=== PATIENT | male | born 1995 | race Caucasian/White ===

== ENCOUNTER 2019-12-07 12:50 | Emergency (ER) | payer SELFPAY ==
[2019-12-07 13:00] VITALS: BP 149/90; PULSE 99; RESP 18; TEMP 37.3; O2SAT 93; BMI 32.3
--- NOTE | 2019-12-07 13:07 | ED_ITS ---
Documented by User: CHASTITY Murray 12/07/19 16:46 HPI - Fever General: Chief Complaint: Fever Stated Complaint: fever Time Seen by Provider: 12/07/19 13:05 History of Present Illness: HPI Narrative: Patient is a 24-year-old male who comes into the ED with nausea, vomiting, fever, diarrhea. Patient does have a past medical history of a stress-induced IL and type II diabetes. Symptoms started 2 days ago. He states he has had 3 episodes of emesis since the symptoms started. Denies any blood in the vomit. He has had multiple episodes of diarrhea Daily over the past 2 days.Diarrhea does not have any blood in it and its described as brown liquid. He endorses fever and chills. Patient is also complaining of a new onset of left shoulder and upper arm pain and numbness that started this morning when he woke up. He denies any current chest pain. He does also have a chronic smoker's cough but admits that his cough has gone worse over the past couple days. He says these did not eat or drink much in the past 2 days and lasting and he was a little chicken soup yesterday. Cough symptoms started over 2 days ago.Patient states that he's supposed to have an albuterol inhaler but refuses to get one. Associated symptoms: Reports chills, diarrhea, extremity pain (left upper arm), nausea and vomiting; Deny abdominal pain, back/flank pain, chest pain, dysuria, headache(s) or nasal congestion Review of Systems Const: Reports: fever and chills; Denies: fatigue Eyes: Denies: change in vision or eye discomfort ENMT: Denies: throat pain, painful swallowing, nasal discharge or nasal congestion Card: Denies: chest pain, palpitations, edema, swelling of feet/ankles, shortness of breath on exertion or shortness of breath when lying down Resp: Reports: non-productive cough; Denies: shortness of breath or productive cough GI: Reports: nausea, vomiting and diarrhea; Denies: abdominal pain, constipation or blood in stool : Denies: flank pain, difficulty urinating, painful urination or blood in urine Musc: Reports: extremity pain (left upper arm); Denies: neck pain, back pain or extremity swelling Skin/Breast: Denies: rash or new lesion Neuro: Reports: numbness in extremities (left upper arm); Denies: headache or weakness in extremities PFS ED PFSH: Social History Smoking and tobacco status: current every day smoker Physical Exam Const: COMMON NORMALS: oriented x3 HENMT: COMMON NORMALS: normocephalic and external nose normal HEAD & SCALP: normocephalic NOSE: external nose normal MOUTH: moist mucous membranes abnormal (dry-mild) THROAT: posterior oropharynx normal and uvula midline Neck/C-Spine: COMMON NORMALS: supple GENERAL: Yes normal visual inspection Resp: COMMON NORMALS: normal respiratory effort, no retractions, no use of accessory muscles and clear to auscultation bilaterally AUSCULTATION: clear to auscultation bilaterally Cardio: COMMON NORMALS: regular rate, regular rhythm, S1 normal heart sound, S2 normal heart sound, no gallops, no clicks, no murmurs and peripheral pulses 2+ throughout RATE: regular rate RHYTHM: regular rhythm HEART SOUNDS: S1 normal and S2 normal PERIPHERAL PULSES: pulses 2+ throughout GI: COMMON NORMALS: normal to inspection, nondistended, normoactive bowel sounds, soft to palpation, non-tender and no masses PALPATION: Yes soft : COMMON NORMALS: Yes no CVA tenderness BLADDER/KIDNEY EXAM: Yes no CVA tenderness Back/Pelvis: COMMON NORMALS: no CVA tenderness Extremity: COMMON NORMALS: normal to inspection LEFT UPPER EXTREMITY: Yes upper arm (normal inspection. non tender.) Neuro: COMMON NORMALS: oriented x3 and moves all extremities Skin: COMMON NORMALS: no rashes or lesions noted GENERAL SKIN EXAM: no rashes or lesions noted and dry skin Course ED course: Patient's wheezing did improve after DuoNeb treatment in the emergency department. EKG was performed along with troponins to rule out any cardiac cause of left arm pain. Troponins were negative. Patient's labs work was remarkable for influenza B and sodium 129.. After IV fluids patient Wallace better and some symptoms improved. Since his upper respiratory symptoms started over 48 hours ago did not start patient on Tamiflu. I did provide him with a prescription for azithromycin and albuterol inhaler due to his wheezing. Patient agreed with understood plan. I discussed with him the importance of getting the inhaler to help with his wheezing. Vital Signs: Vital signs: Vital Signs Temperature 98.4 F 02/16/20 16:08 Pulse Rate 95 12/07/19 16:08 Respiratory Rate 20 H 12/07/19 16:08 Blood Pressure 114/68 12/07/19 16:08 Pulse Oximetry 94 12/07/19 16:08 MDM - Fever Lab Data: Attestation: I reviewed the patient's lab results. Labs: Lab Results 12/07/19 12/07/19 12/07/19 Range/Units 13:10 13:10 13:10 WBC 5.0 (4.0-10.0) 10^3/ uL RBC 5.84 H (4.1-5.3) 10^6/u L Hgb 15.9 (11.7-16.6) g/dL Hct 46.7 (42.0-52.0) % MCV 80.0 (80-94) fL MCH 27.2 L (28.0-34.0) pg MCHC 34.0 (30.0-36.0) g/dL RDW 11.9 L (12.1-15.1) % Plt Count 142 (130-400) 10^3/c mm MPV 9.9 (7.4-10.4) fL Neut % (Auto) 59.8 % Lymph % (Auto) 22.6 % [place] % (Auto) 16.8 % Eos % (Auto) 0.0 % Baso % (Auto) 0.4 % Neut # (Auto) 3.0 (1.8-7.7) 10^3/u L Lymph # (Auto) 1.1 (0.8-4.8) 10^3/u L [place] # (Auto) 0.8 (0.2-0.9) 10^3/u L Eos # (Auto) 0.0 (0.0-0.8) 10^3/u L Baso # (Auto) 0.0 (0.0-0.1) 10^3/u L Nucleated RBC % (a uto) 0 % Nucleated RBCs # 0.0 /100WBC Sodium 129 L (136-145) mmol/L Potassium 3.6 (3.5-5.1) mmol/L Chloride 91 L (98-107) mmol/L Carbon Dioxide 24 (22-29) mmol/L Anion Gap 17.6 (5-19) BUN 9 (6-20) mg/dL Creatinine 0.9 (0.7-1.2) mg/dL GFR Calculation 105.5 (90-130) mL/min Glucose 397 H (65-115) mg/dL POC Glucose (70-110) mg/dL Calcium 9.5 (8.5-10.5) mg/dL Total Bilirubin 0.3 (0.15-1.2) mg/dL AST 28 (0-40) U/L ALT 27 (0-41) U/L Alkaline Phosphata se 92 (40-130) IU/L Troponin T Baselin e 9 (0-15) ng/mL Troponin T 120 Min [place] (0-15) ng/mL Delta Troponin T (0-10) ABS# Total Protein 7.7 (6.6-8.7) g/dL Albumin 4.2 (3.5-5.2) g/dL Globulin 3.5 (1.3-4.6) g/dL Urine Color (Yellow) Urine Appearance (CLEAR) Urine pH (5-7) Ur Specific Gravit y (1.005-1.030) Urine Protein (Negative) Urine Glucose (UA) (Normal) Urine Ketones (Negative) Urine Occult Blood (Negative) Urine Nitrate (Negative) Urine Bilirubin (NEGATIVE) Urine Urobilinogen (Negative) mg/dL Ur Leukocyte Reba ase (Negative) Urine RBC (0-2) /hpf Urine WBC (0-5) /hpf Ur Squamous Epith Cells (0-5) Urine Bacteria (NONE) Influenza Type A A g (Negative) POC Influenza B Ag (Negative) 12/07/19 12/07/19 12/07/19 Range/Units 13:24 13:35 13:40 WBC (4.0-10.0) 10^3/ uL RBC (4.1-5.3) 10^6/u L Hgb (11.7-16.6) g/dL Hct (42.0-52.0) % MCV (80-94) fL MCH (28.0-34.0) pg MCHC (30.0-36.0) g/dL RDW (12.1-15.1) % Plt Count (130-400) 10^3/c mm MPV (7.4-10.4) fL Neut % (Auto) % Lymph % (Auto) % [place] % (Auto) % Eos % (Auto) % Baso % (Auto) % Neut # (Auto) (1.8-7.7) 10^3/u L Lymph # (Auto) (0.8-4.8) 10^3/u L [place] # (Auto) (0.2-0.9) 10^3/u L Eos # (Auto) (0.0-0.8) 10^3/u L Baso # (Auto) (0.0-0.1) 10^3/u L Nucleated RBC % (a uto) % Nucleated RBCs # /100WBC Sodium (136-145) mmol/L Potassium (3.5-5.1) mmol/L Chloride (98-107) mmol/L Carbon Dioxide (22-29) mmol/L Anion Gap (5-19) BUN (6-20) mg/dL Creatinine (0.7-1.2) mg/dL GFR Calculation (90-130) mL/min Glucose (65-115) mg/dL POC Glucose 100 (70-110) mg/dL Calcium (8.5-10.5) mg/dL Total Bilirubin (0.15-1.2) mg/dL AST (0-40) U/L ALT (0-41) U/L Alkaline Phosphata se (40-130) IU/L Troponin T Baselin e (0-15) ng/mL Troponin T 120 Min [place] (0-15) ng/mL Delta Troponin T (0-10) ABS# Total Protein (6.6-8.7) g/dL Albumin (3.5-5.2) g/dL Globulin (1.3-4.6) g/dL Urine Color Yellow (Yellow) Urine Appearance Clear (CLEAR) Urine pH 5 (5-7) Ur Specific Gravit y 1.020 (1.005-1.030) Urine Protein 1+ H (Negative) Urine Glucose (UA) 4+ H (Normal) Urine Ketones Negative (Negative) Urine Occult Blood Neg (Negative) Urine Nitrate Negative (Negative) Urine Bilirubin Neg (NEGATIVE) Urine Urobilinogen Norm (Negative) mg/dL Ur Leukocyte Reba ase Negative (Negative) Urine RBC None (0-2) /hpf Urine WBC None (0-5) /hpf Ur Squamous Epith Cells None (0-5) Urine Bacteria None (NONE) Influenza Type A A g Negative (Negative) POC Influenza B Ag Positive H (Negative) 12/07/19 Range/Units 15:03 WBC (4.0-10.0) 10^3/ uL RBC (4.1-5.3) 10^6/u L Hgb (11.7-16.6) g/dL Hct (42.0-52.0) % MCV (80-94) fL MCH (28.0-34.0) pg MCHC (30.0-36.0) g/dL RDW (12.1-15.1) % Plt Count (130-400) 10^3/c mm MPV (7.4-10.4) fL Neut % (Auto) % Lymph % (Auto) % [place] % (Auto) % Eos % (Auto) % Baso % (Auto) % Neut # (Auto) (1.8-7.7) 10^3/u L Lymph # (Auto) (0.8-4.8) 10^3/u L [place] # (Auto) (0.2-0.9) 10^3/u L Eos # (Auto) (0.0-0.8) 10^3/u L Baso # (Auto) (0.0-0.1) 10^3/u L Nucleated RBC % (a uto) % Nucleated RBCs # /100WBC Sodium (136-145) mmol/L Potassium (3.5-5.1) mmol/L Chloride (98-107) mmol/L Carbon Dioxide (22-29) mmol/L Anion Gap (5-19) BUN (6-20) mg/dL Creatinine (0.7-1.2) mg/dL GFR Calculation (90-130) mL/min Glucose (65-115) mg/dL POC Glucose (70-110) mg/dL Calcium (8.5-10.5) mg/dL Total Bilirubin (0.15-1.2) mg/dL AST (0-40) U/L ALT (0-41) U/L Alkaline Phosphata se (40-130) IU/L Troponin T Baselin e (0-15) ng/mL Troponin T 120 Min [place] 8.40 (0-15) ng/mL Delta Troponin T -0.60 L (0-10) ABS# Total Protein (6.6-8.7) g/dL Albumin (3.5-5.2) g/dL Globulin (1.3-4.6) g/dL Urine Color (Yellow) Urine Appearance (CLEAR) Urine pH (5-7) Ur Specific Gravit y (1.005-1.030) Urine Protein (Negative) Urine Glucose (UA) (Normal) Urine Ketones (Negative) Urine Occult Blood (Negative) Urine Nitrate (Negative) Urine Bilirubin (NEGATIVE) Urine Urobilinogen (Negative) mg/dL Ur Leukocyte Reba ase (Negative) Urine RBC (0-2) /hpf Urine WBC (0-5) /hpf Ur Squamous Epith Cells (0-5) Urine Bacteria (NONE) Influenza Type A A g (Negative) POC Influenza B Ag (Negative) Imaging Data^: CXR: Attestation: I personally reviewed and interpreted this imaging study as follows: Radiologist's impression: [address] [address] XRay Report Signed Patient: Emiliano Jordan Unit #: [id number] : 1995 Age/Sex: 24 / M ADM Date: 12/07/19 Loc: ER Room/Bed: Attending Dr: Ordering Provider/Ordering MD: Darnell Patel Date of Service: 12/07/19 Procedure(s): XR chest 1V portable [id number] Accession Number(s): [id number] Report Number: [id number] WS: [id number] XR chest 1V portable [id number] REASON FOR EXAM: cough and wheezing FINDINGS: The heart is normal in size. The lung fry are well aerated. The chest is similar to July 19, 2018. No pneumonia, pleural effusion, pulmonary edema, or mass effect. There is no evidence of abnormalities the hilum and apices. No osseous abnormalities. XR/XR chest 1V portable [id number] IMPRESSION: No active cardiopulmonary changes. Dictated By: Adan Judd DO Signed By: Adan Judd DO Signed Date/Time: 12/07/19 1356 DD/ 1355 EKG Data^: EKG 1: Attestation: I personally reviewed and interpreted this EKG as follows: EKG interpretation date: 12/07/19 Interpretation: Normal sinus rhythm, 96 bpm, no ST depression seen, Possible ST elevation in lead 2 no flipped T waves. P waves present. Computer generated interpretation: Sinus rhythm, 96 bpm, ST elevation probably early repolarization (ST elevation with normally infected T-wave) Borderline right axis deviation. Discharge Plan Discharge Patient Disposition: Home, Self-Care Clinical Impression: Influenza B, Wheezing-associated respiratory infection Condition: Stable Prescriptions: New albuterol sulfate 90 mcg/actuation aerosol powdr breath activated 2 inh INHALATION Q6H PRN (Reason: shortness of breath or wheezing) Qty: 1 RF: 0 azithromycin 250 mg tablet See Rx Instructions .ROUTE .COMPLEX Qty: 6 RF: 0 No Action Tylenol Extra Strength 500 mg Tablet 500 mg PO Q4H PRN (Reason: Pain) RF: 0 ibuprofen 200 mg Tablet 400 mg PO Q4H PRN (Reason: Pain) RF: 0 Discharge Orders: Discharge Order (Routine); Ordered 12/07/19 Ordered By: Darnell Patel Referrals: Magdalena Sierra NP [Primary Care Provider] - Discharge Diet: Regular Discharge Activity: Increase activity as tolerated Patient Instructions: Influenza (ED), Reactive Airways Disease (ED) Activity Restrictions/Additional Instructions: Follow-up care PCP in 5-7 days for reevaluation. Use albuterol inhaler as needed for wheezing. Take full course of antibiotic as prescribed. Take ibuprofen or Tylenol as needed for fevers. Return to the ED if you have any shortness of breath or symptoms worsen. Discharge Date/Time: 12/07/19 15:59 Coding Level of Care Code ED Pension Administrator for Chg Fwd Exam Detailed Documented by User: Tiffanie Echevarria MD, [facility] [place] 12/16/19 23:38 HPI - Fever General: Chief Complaint: Fever Stated Complaint: fever Time Seen by Provider: 12/07/19 13:05 REPLACED BY [facility] ED PFSH: Social History Smoking and tobacco status: current every day smoker Course Vital Signs: Vital signs: Vital Signs Temperature 98.4 F 12/07/19 16:08 Pulse Rate 95 12/07/19 16:08 Respiratory Rate 20 H 12/07/19 16:08 Blood Pressure 114/68 12/07/19 16:08 Pulse Oximetry 94 12/07/19 16:08 MDM - Fever Lab Data: Labs: Lab Results 12/07/19 12/07/19 12/07/19 Range/Units 13:10 13:10 13:10 WBC 5.0 (4.0-10.0) 10^3/ uL RBC 5.84 H (4.1-5.3) 10^6/u L Hgb 15.9 (11.7-16.6) g/dL Hct 46.7 (42.0-52.0) % MCV 80.0 (80-94) fL MCH 27.2 L (28.0-34.0) pg MCHC 34.0 (30.0-36.0) g/dL RDW 11.9 L (12.1-15.1) % Plt Count 142 (130-400) 10^3/c mm MPV 9.9 (7.4-10.4) fL Neut % (Auto) 59.8 % Lymph % (Auto) 22.6 % [place] % (Auto) 16.8 % Eos % (Auto) 0.0 % Baso % (Auto) 0.4 % Neut # (Auto) 3.0 (1.8-7.7) 10^3/u L Lymph # (Auto) 1.1 (0.8-4.8) 10^3/u L [place] # (Auto) 0.8 (0.2-0.9) 10^3/u L Eos # (Auto) 0.0 (0.0-0.8) 10^3/u L Baso # (Auto) 0.0 (0.0-0.1) 10^3/u L Nucleated RBC % (a uto) 0 % Nucleated RBCs # 0.0 /100WBC Sodium 129 L (136-145) mmol/L Potassium 3.6 (3.5-5.1) mmol/L Chloride 91 L (98-107) mmol/L Carbon Dioxide 24 (22-29) mmol/L Anion Gap 17.6 (5-19) BUN 9 (6-20) mg/dL Creatinine 0.9 (0.7-1.2) mg/dL GFR Calculation 105.5 (90-130) mL/min Glucose 397 H (65-115) mg/dL POC Glucose (70-110) mg/dL Calcium 9.5 (8.5-10.5) mg/dL Total Bilirubin 0.3 (0.15-1.2) mg/dL AST 28 (0-40) U/L ALT 27 (0-41) U/L Alkaline Phosphata se 92 (40-130) IU/L Troponin T Baselin e 9 (0-15) ng/mL Troponin T 120 Min [place] (0-15) ng/mL Delta Troponin T (0-10) ABS# Total Protein 7.7 (6.6-8.7) g/dL Albumin 4.2 (3.5-5.2) g/dL Globulin 3.5 (1.3-4.6) g/dL Urine Color (Yellow) Urine Appearance (CLEAR) Urine pH (5-7) Ur Specific Gravit y (1.005-1.030) Urine Protein (Negative) Urine Glucose (UA) (Normal) Urine Ketones (Negative) Urine Occult Blood (Negative) Urine Nitrate (Negative) Urine Bilirubin (NEGATIVE) Urine Urobilinogen (Negative) mg/dL Ur Leukocyte Reba ase (Negative) Urine RBC (0-2) /hpf Urine WBC (0-5) /hpf Ur Squamous Epith Cells (0-5) Urine Bacteria (NONE) Influenza Type A A g (Negative) POC Influenza B Ag (Negative) 12/07/19 12/07/19 12/07/19 Range/Units 13:24 13:35 13:40 WBC (4.0-10.0) 10^3/ uL RBC (4.1-5.3) 10^6/u L Hgb (11.7-16.6) g/dL Hct (42.0-52.0) % MCV (80-94) fL MCH (28.0-34.0) pg MCHC (30.0-36.0) g/dL RDW (12.1-15.1) % Plt Count (130-400) 10^3/c mm MPV (7.4-10.4) fL Neut % (Auto) % Lymph % (Auto) % [place] % (Auto) % Eos % (Auto) % Baso % (Auto) % Neut # (Auto) (1.8-7.7) 10^3/u L Lymph # (Auto) (0.8-4.8) 10^3/u L [place] # (Auto) (0.2-0.9) 10^3/u L Eos # (Auto) (0.0-0.8) 10^3/u L Baso # (Auto) (0.0-0.1) 10^3/u L Nucleated RBC % (a uto) % Nucleated RBCs # /100WBC Sodium (136-145) mmol/L Potassium (3.5-5.1) mmol/L Chloride (98-107) mmol/L Carbon Dioxide (22-29) mmol/L Anion Gap (5-19) BUN (6-20) mg/dL Creatinine (0.7-1.2) mg/dL GFR Calculation (90-130) mL/min Glucose (65-115) mg/dL POC Glucose 100 (70-110) mg/dL Calcium (8.5-10.5) mg/dL Total Bilirubin (0.15-1.2) mg/dL AST (0-40) U/L ALT (0-41) U/L Alkaline Phosphata se (40-130) IU/L Troponin T Baselin e (0-15) ng/mL Troponin T 120 Min [place] (0-15) ng/mL Delta Troponin T (0-10) ABS# Total Protein (6.6-8.7) g/dL Albumin (3.5-5.2) g/dL Globulin (1.3-4.6) g/dL Urine Color Yellow (Yellow) Urine Appearance Clear (CLEAR) Urine pH 5 (5-7) Ur Specific Gravit y 1.020 (1.005-1.030) Urine Protein 1+ H (Negative) Urine Glucose (UA) 4+ H (Normal) Urine Ketones Negative (Negative) Urine Occult Blood Neg (Negative) Urine Nitrate Negative (Negative) Urine Bilirubin Neg (NEGATIVE) Urine Urobilinogen Norm (Negative) mg/dL Ur Leukocyte Reba ase Negative (Negative) Urine RBC None (0-2) /hpf Urine WBC None (0-5) /hpf Ur Squamous Epith Cells None (0-5) Urine Bacteria None (NONE) Influenza Type A A g Negative (Negative) POC Influenza B Ag Positive H (Negative) 12/07/19 Range/Units 15:03 WBC (4.0-10.0) 10^3/ uL RBC (4.1-5.3) 10^6/u L Hgb (11.7-16.6) g/dL Hct (42.0-52.0) % MCV (80-94) fL MCH (28.0-34.0) pg MCHC (30.0-36.0) g/dL RDW (12.1-15.1) % Plt Count (130-400) 10^3/c mm MPV (7.4-10.4) fL Neut % (Auto) % Lymph % (Auto) % [place] % (Auto) % Eos % (Auto) % Baso % (Auto) % Neut # (Auto) (1.8-7.7) 10^3/u L Lymph # (Auto) (0.8-4.8) 10^3/u L [place] # (Auto) (0.2-0.9) 10^3/u L Eos # (Auto) (0.0-0.8) 10^3/u L Baso # (Auto) (0.0-0.1) 10^3/u L Nucleated RBC % (a uto) % Nucleated RBCs # /100WBC Sodium (136-145) mmol/L Potassium (3.5-5.1) mmol/L Chloride (98-107) mmol/L Carbon Dioxide (22-29) mmol/L Anion Gap (5-19) BUN (6-20) mg/dL Creatinine (0.7-1.2) mg/dL GFR Calculation (90-130) mL/min Glucose (65-115) mg/dL POC Glucose (70-110) mg/dL Calcium (8.5-10.5) mg/dL Total Bilirubin (0.15-1.2) mg/dL AST (0-40) U/L ALT (0-41) U/L Alkaline Phosphata se (40-130) IU/L Troponin T Baselin e (0-15) ng/mL Troponin T 120 Min [place] 8.40 (0-15) ng/mL Delta Troponin T -0.60 L (0-10) ABS# Total Protein (6.6-8.7) g/dL Albumin (3.5-5.2) g/dL Globulin (1.3-4.6) g/dL Urine Color (Yellow) Urine Appearance (CLEAR) Urine pH (5-7) Ur Specific Gravit y (1.005-1.030) Urine Protein (Negative) Urine Glucose (UA) (Normal) Urine Ketones (Negative) Urine Occult Blood (Negative) Urine Nitrate (Negative) Urine Bilirubin (NEGATIVE) Urine Urobilinogen (Negative) mg/dL Ur Leukocyte Reba ase (Negative) Urine RBC (0-2) /hpf Urine WBC (0-5) /hpf Ur Squamous Epith Cells (0-5) Urine Bacteria (NONE) Influenza Type A A g (Negative) POC Influenza B Ag (Negative) Discharge Plan Discharge Patient Disposition: Home, Self-Care Clinical Impression: Influenza B, Wheezing-associated respiratory infection Condition: Stable Prescriptions: New albuterol sulfate 90 mcg/actuation aerosol powdr breath activated 2 inh INHALATION Q6H PRN (Reason: shortness of breath or wheezing) Qty: 1 RF: 0 azithromycin 250 mg tablet See Rx Instructions .ROUTE .COMPLEX Qty: 6 RF: 0 No Action Tylenol Extra Strength 500 mg Tablet 500 mg PO Q4H PRN (Reason: Pain) RF: 0 ibuprofen 200 mg Tablet 400 mg PO Q4H PRN (Reason: Pain) RF: 0 Discharge Orders: Discharge Order (Routine); Ordered 12/07/19 Ordered By: Darnell Patel Referrals: Magdalena Sierra NP [Primary Care Provider] - Discharge Diet: Regular Discharge Activity: Increase activity as tolerated Patient Instructions: Influenza (ED), Reactive Airways Disease (ED) Activity Restrictions/Additional Instructions: Follow-up care PCP in 5-7 days for reevaluation. Use albuterol inhaler as needed for wheezing. Take full course of antibiotic as prescribed. Take ibuprofen or Tylenol as needed for fevers. Return to the ED if you have any shortness of breath or symptoms worsen. Discharge Date/Time: 12/07/19 15:59 Coding Level of Care Code ED Pension Administrator for Chg Fwd Exam Detailed
[2019-12-07 13:18] LABS: Basophils % 0.4 %; Hematocrit 46.7 % (42.0-52.0); Hemoglobin 15.9 g/dL (11.7-16.6); Lymphocytes # 1.1 10^3/uL (0.8-4.8); Lymphocytes % 22.6 %; Mean Corpuscular Hemoglobin 27.2 pg (28.0-34.0); Mean Platelet Volume 9.9 fL (7.4-10.4); Monocytes # 0.8 10^3/uL (0.2-0.9); Monocytes % 16.8 %; Neutrophils % 59.8 %; Nucleated Red Blood Cells % 0 %; Platelet Count 142 10^3/cmm (130-400); Red Blood Count 5.84 10^6/uL (4.1-5.3); Red Cell Distribution Width 11.9 % (12.1-15.1)
[2019-12-07] MEDS: sodium chloride 0.9% 1,000 ML 999 ML IV (13:30)
--- NOTE | 2019-12-07 13:31 | ECG_ITS ---
Measurements Intervals [place] Rate: 96 P: 69 PA: 165 QRS: 96 QRSD: 100 T: 42 QT: 322 QTc: 407 SINUS RHYTHM BORDERLINE RIGHT AXIS DEVIATION [QRS AXIS > 90] ST ELEVATION, PROBABLY EARLY REPOLARIZATION [ST ELEVATION WITH NORMALLY IN INFLECTED T WAVE] Compared to ECG 09/02/2017 00:20:12 ST (T wave) deviation now present Early repolarization now present Sinus tachycardia no longer present T-wave abnormality no longer present Electronically Signed On 12-08-2019 11:15:35 DEMAND PLANNING ANALYST by Tank Lee M.D. [email or web address]
--- NOTE | 2019-12-07 13:31 | XR_ITS ---
WS: [id number] XR chest 1V portable [id number] REASON FOR EXAM: cough and wheezing FINDINGS: The heart is normal in size. The lung fry are well aerated. The chest is similar to July 19, 2018. No pneumonia, pleural effusion, pulmonary edema, or mass effect. There is no evidence of abnormalities the hilum and apices. No osseous abnormalities. XR/XR chest 1V portable [id number] IMPRESSION: No active cardiopulmonary changes.
[2019-12-07 13:34] LABS: Glucose Point of Care 100 mg/dL (70-110)
[2019-12-07 13:37] LABS: Alanine Aminotransferase 27 U/L (0-41); Albumin Level 4.2 g/dL (3.5-5.2); Alkaline Phosphatase 92 IU/L (40-130); Anion Gap 17.6 (5-19); Aspartate Amino Transferase 28 U/L (0-40); Blood Urea Nitrogen 9 mg/dL (6-20); Calcium 9.5 mg/dL (8.5-10.5); Carbon Dioxide 24 mmol/L (22-29); Chloride 91 mmol/L (98-107); Globulin 3.5 g/dL (1.3-4.6); Glomerular Filtration Rate 105.5 mL/min (90-130); Glucose 397 mg/dL (65-115); Potassium 3.6 mmol/L (3.5-5.1); Sodium 129 mmol/L (136-145); Total Bilirubin 0.3 mg/dL (0.15-1.2); Total Protein 7.7 g/dL (6.6-8.7)
[2019-12-07 13:47] VITALS: PULSE 104; RESP 16; O2SAT 92
[2019-12-07] MEDS: ipratropium-albuterol 3 mL Neb INHALATION (13:47)
[2019-12-07 13:50] VITALS: PULSE 106; RESP 16; O2SAT 92
[2019-12-07 13:51] LABS: Troponin(5th) Baseline 9 ng/mL (0-15)
[2019-12-07 13:52] LABS: Urine Color Yellow (Yellow)
[2019-12-07 13:53] LABS: Bilirubin Urine Neg (NEGATIVE); Blood Urine Neg (Negative); Glucose Urine UA 4+ (Normal); Ketones Urine Negative (Negative); Leukocyte Esterase Urine Negative (Negative); Nitrate Urine Negative (Negative); Protein Urine 1+ (Negative); Urine Appearance Clear (CLEAR); Urobilinogen Urine Norm (Negative); pH Urine 5 (5-7)
[2019-12-07 14:17] LABS: Influenza A by IFA Negative (Negative); Influenza B by IFA Positive (Negative)
[2019-12-07] MEDS: acetaminophen 500 mg Tablet PO (15:01)
[2019-12-07 16:08] VITALS: BP 114/68; PULSE 95; RESP 20; TEMP 36.9; O2SAT 94
== END 2019-12-07 15:59 | disposition home or self-care (01) ==
PROVIDERS: Emergency Provider Physician Assistant; Family Provider Nurse Practitioner Family; PCP Nurse Practitioner Family
DX: J11.1 Influenza due to unidentified influenza virus with other respiratory manifestations (principal); R06.2 Wheezing; J98.8 Other specified respiratory disorders; E11.9 Type 2 diabetes mellitus without complications; I25.2 Old myocardial infarction; F17.200 Nicotine dependence, unspecified, uncomplicated
CPT/HCPCS: 36415; 36416; 71045; 80053; 81001; 82962; 84484; 85025; 87040; 87804; 93005; 94640; 96360; 96361; 96374; 96375; 99283; 99284; A9270; J2930; J7030

== ENCOUNTER → 2020-11-01 15:49 | Outpatient (BNVA) | payer SELFPAY | PROVIDERS: Family Provider Nurse Practitioner Family; PCP Nurse Practitioner Family; Visit Provider Nurse Practitioner Family | DX: R30.9 Painful micturition, unspecified (principal) | CPT/HCPCS: 81000 ==

== ENCOUNTER 2023-01-01 21:47 | Emergency (ER) | payer OTHER, SELFPAY ==
[2023-01-01 22:04] VITALS: BP 143/91; PULSE 96; RESP 16; TEMP 36.7; O2SAT 93
--- NOTE | 2023-01-01 22:09 | ECG_ITS ---
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1995 Requested By: Derrek Carrero Order Number: [id number] Esperanza MD: YAMIL VERGARA Measurements Intervals [place] Rate: 102 P: 68 MO: 154 QRS: 89 QRSD: 102 T: -20 QT: 316 QTc: 413 Interpretive Statements SINUS TACHYCARDIA NONSPECIFIC T-WAVE ABNORMALITY Compared to ECG 12/07/2019 13:46:32 T-wave abnormality now present Sinus rhythm no longer present ST (T wave) deviation no longer present Early repolarization no longer present Electronically Signed On 01-02-2023 17:41:27 CDT by YAMIL VERGARA [email or web address]
[2023-01-01 22:53] VITALS: BP 122/81; PULSE 95; RESP 16; O2SAT 93
--- NOTE | 2023-01-01 22:59 | W.ED.CHESTPA ---
HPI - Chest Pain General: Chief Complaint: Chest Pain Stated Complaint: chest pain; high bp; high bs; lightheaded Time Seen by Provider: 01/01/23 22:59 History of Present Illness: Mr. Jordan is a 27-year-old gentleman with history of diabetes, [place] (reported secondary to stress in 2016), tobaccoism presenting to the emergency department for chest pain. He reports that he was at his baseline health earlier today. He got home from work and was getting out of the shower when he had substernal chest pain associated with a lightheaded feeling. His sugars have been higher than normal as well. Intensity symptoms moderate. Course has persisted. Mild presyncopal type feeling associated with this. No other specific changes in health, exacerbating, or alleviating factors identified. Onset (ago): minute(s) Timing of current episode: constant Onset: during exertion Pain location: substernal Severity: moderate Quality: aching and heaviness Relieving factors: nothing Exacerbating factors: nothing Associated symptoms: Reports other Review of Systems General: Reports: 10 or more systems reviewed and unremarkable except in HPI and below PFSH ED PFSH: Medical History Diabetes Social History Smoking and tobacco status: current every day smoker Alcohol intake: never Physical Exam Const: COMMON NORMALS: alert GENERAL APPEARANCE: cooperative and well developed HENMT: COMMON NORMALS: normocephalic and atraumatic HEAD & SCALP: normocephalic and atraumatic Eye: COMMON NORMALS: conjunctivae normal CONJUNCTIVA: Yes conjunctivae normal SCLERA: sclerae normal Neck/C-Spine: COMMON NORMALS: supple GENERAL: Yes trachea midline Resp: COMMON NORMALS: clear to auscultation bilaterally EFFORT & INSPECTION: Yes able to speak in complete sentences AUSCULTATION: clear to auscultation bilaterally Cardio: COMMON NORMALS: regular rate and regular rhythm RATE: regular rate RHYTHM: regular rhythm GI: COMMON NORMALS: Soft to palpation PALPATION: Yes Soft to palpation and No Tenderness to palpation present (GI) Extremity: GENERAL: Yes normal exam except as noted and No edema Neuro: COMMON NORMALS: moves all extremities SENSORIUM/ORIENTATION: Yes alert and No Orientation impaired Psych: COMMON NORMALS: mental status grossly normal and Normal thought process present THOUGHT PROCESS: Normal thought process present Course Vital Signs: Vital signs: Vital Signs Temperature 98.0 F 01/01/23 22:04 Pulse Rate 77 01/02/23 02:28 Respiratory Rate 18 01/02/23 01:09 Blood Pressure 135/84 01/02/23 00:53 Pulse Oximetry 92 01/02/23 02:28 Oxygen Delivery Me thod 01/02/23 02:28 MDM - Chest Pain Medical Decision Making 27-year-old gentleman with history of diabetes presenting with chest pain and presyncopal type feeling. Patient largely feels improved though not back to baseline. Nonfocal neurologic exam and patient is nontoxic. EKG notable for sinus tachycardia, normal axis and intervals, nonspecific ST segment abnormalities. No STEMI. Labs with mild hemoconcentration, no significant metabolic abnormalities. Glucose is elevated without evidence of DKA. Lipase elevated. Chest x-ray with no lobar consolidation or pneumothorax. Patient treated with fluids, analgesia and improved on reassessment. Most likely etiology of symptoms is unclear, perhaps related to mild pancreatitis and exacerbation of underlying lung disease secondary to smoking. Patient is low risk by heart score. The results of ED evaluation were discussed with the patient including prescriptions and/or symptomatic cares (if applicable) including appropriate and responsible use, followup plan, and return precautions. The patient verbalized understanding and felt safe for discharge. Medical Records I reviewed the patient's medical records. Lab Data I reviewed the patient's lab results. 01/01/23 23:58 01/01/23 23:58 Radiology Impressions Chest X-Ray 01/01/23 23:15 IMPRESSION: No acute cardiopulmonary process. Laboratory Results WBC 10.3 10^3/uL (4.0-10.0) H 01/01/23 23:58 RBC 6.09 10^6/uL (4.1-5.3) H 01/01/23 23:58 Hgb 17.1 g/dL (11.7-16.6) H 01/01/23 23:58 Hct 50.4 % (42.0-52.0) 01/01/23 23:58 MCV 82.8 fl (80-94) 01/01/23 23:58 MCH 28.1 pg (28.0-34.0) 01/01/23 23:58 MCHC 33.9 g/dL (30.0-36.0) 01/01/23 23:58 RDW 12.2 % (12.1-15.1) 01/01/23 23:58 Plt Count 206 10^3/cmm (130-400) 01/01/23 23:58 MPV 10.5 fL (7.4-10.4) H 01/01/23 23:58 Neut % (Auto) 55.5 % 01/01/23 23:58 Lymph % (Auto) 34.2 % 01/01/23 23:58 [place] % (Auto) 9.2 % 01/01/23 23:58 Eos % (Auto) 0.1 % 01/01/23 23:58 Baso % (Auto) 0.6 % 01/01/23 23:58 Neut # (Auto) 5.72 10^3/uL (1.8-7.7) 01/01/23 23:58 Lymph # (Auto) 3.5 10^3/uL (0.8-4.8) 01/01/23 23:58 [place] # (Auto) 1.0 10^3/uL (0.2-0.9) H 01/01/23 23:58 Eos # (Auto) 0.0 10^3/uL (0.0-0.8) 01/01/23 23:58 Baso # (Auto) 0.1 10^3/uL (0.0-0.1) 01/01/23 23:58 Nucleated RBC % (auto) 0 % 01/01/23 23:58 Nucleated RBCs # 0.0 /100WBC 01/01/23 23:58 Sodium 136 mmol/L (136-145) 01/01/23 23:58 Potassium 4.2 mmol/L (3.5-5.1) 01/01/23 23:58 Chloride 98 mmol/L (98-107) 01/01/23 23:58 Carbon Dioxide 26 mmol/L (22-29) 01/01/23 23:58 Anion Gap 16.2 (5-19) 01/01/23 23:58 BUN 13 mg/dL (6-20) 01/01/23 23:58 Creatinine 0.9 mg/dL (0.7-1.2) 01/01/23 23:58 GFR Calculation 102.8 mL/min (90-130) 01/01/23 23:58 Glucose 322 mg/dL (65-115) H 01/01/23 23:58 POC Glucose 257 mg/dL (70-110) H 01/02/23 02:57 Calculated Osmolality 295 mOsm/kg (285-295) 01/01/23 23:58 Calcium 9.4 mg/dL (8.5-10.5) 01/01/23 23:58 Total Bilirubin 0.3 mg/dL (0.15-1.2) 01/01/23 23:58 AST 15 U/L (0-40) 01/01/23 23:58 ALT 22 U/L (0-41) 01/01/23 23:58 Alkaline Phosphatase 91 U/L (40-130) 01/01/23 23:58 Troponin T Baseline 6 ng/L (0-15) 01/01/23 23:58 Troponin T 120 Minute 6.79 ng/L (0-15) 01/02/23 02:23 Delta Troponin T 0.79 ABS# (0-10) 01/02/23 02:23 NT-Pro-B Natriuret Pep 36 pg/mL (0-125) 01/01/23 23:58 Total Protein 6.9 g/dL (6.6-8.7) 01/01/23 23:58 Albumin 4.0 g/dL (3.5-5.2) 01/01/23 23:58 Globulin 2.9 g/dL (1.3-4.6) 01/01/23 23:58 Lipase 97 U/L (13-60) H 01/01/23 23:58 Serum Ketones Negative (Negative) 01/01/23 23:58 Influenza Type A Ag negative (Negative) 01/02/23 01:21 Influenza Type B Ag negative (Negative) 01/02/23 01:21 SARS-CoV-2 Ag (Rapid) negative (Negative) 01/02/23 01:21 Discharge Plan Discharge Patient Disposition: Home Clinical Impression: Chest pain, Pancreatitis, Dehydration, Hyperglycemia, Smoker Condition: Stable Prescriptions: New doxycycline hyclate 100 mg capsule 100 mg PO BID 10 Days Qty: 20 0RF albuterol sulfate 90 mcg/actuation HFA aerosol inhaler 2 inh inhalation Q4H PRN (Reason: shortness of breath or wheezing) Qty: 8.5 0RF ondansetron 4 mg tablet,disintegrating 4 mg PO Q8H PRN (Reason: nausea and vomiting) Qty: 15 0RF oxycodone 5 mg tablet 5 mg PO Q4H PRN (Reason: pain) Qty: 10 0RF No Action ondansetron 4 mg tablet,disintegrating 4 mg PO Q6H PRN (Reason: nausea and vomiting) Qty: 12 0RF Rx Instructions: 340b please albuterol sulfate 90 mcg/actuation HFA aerosol inhaler 2 puff inhalation Q6H PRN (Reason: shortness of breath or wheezing) Qty: 8.5 0RF Tylenol Extra Strength 500 mg Tablet 500 mg PO Q4H PRN (Reason: Pain) ibuprofen 200 mg Tablet 400 mg PO Q4H PRN (Reason: Pain) Discharge Orders: Discharge ED (Routine); Ordered 01/02/23 Ordered By: Derrek Carrero Referrals: Magdalena Sierra FNP [Primary Care Provider] - Discharge Diet: Advance as tolerated and Clear Liquid Discharge Activity: Increase activity as tolerated Patient Instructions: Chest Pain (ED), Pancreatitis (ED), Diabetic Hyperglycemia (ED), Opioid Safety Activity Restrictions/Additional Instructions: Thank you for visiting the emergency department. You were seen and evaluated for chest pain. The exact cause of your symptoms is unclear. You do have mild elevation in your lipase which can indicate mild pancreatitis. Additionally, given underlying smoking, you may have atypical infection. You may use [id number] medications such as acetaminophen and ibuprofen for pain however please do not exceed the daily recommended dosage as listed on the packaging and please keep in mind that many namebrand medications contain the same active ingredients. Please avoid these medications if previously instructed to do so by another physician due to other underlying medical condition. I will prescribe antibiotics. Please also use your albuterol metered-dose inhaler 2 puffs every 4 hours for 24 hours followed by 2 puffs every 6 hours for 24 hours followed by 2 puffs every 8 hours for 24 hours and then return to the normal schedule. Please follow-up with your primary care provider and ensure that you are keeping track and controlling your blood sugars. Given history I will refer you for follow-up with cardiology. Return to the emergency department for worsening symptoms or anything else that you are concerned about and feel needs emergency department evaluation. Stand Alone Forms: Work/School Release Coding Level of Care Code ED Clerical Administrative Assistant for Melo Saxena
--- NOTE | 2023-01-01 23:15 | XRR_ITS ---
PROCEDURE INFORMATION: Exam: XR Chest Exam date and time: 01/01/2023 11:23 PM Age: 27 years old Clinical indication: Chest pressure; Patient HX: C/O chest pain; Additional info: Cp TECHNIQUE: Imaging protocol: Radiologic exam of the chest. Views: 1 view. COMPARISON: CR XR chest 1V portable [id number] 12/07/2019 1:47 PM FINDINGS: Lungs: Lungs are clear bilaterally. Pleural spaces: No pleural effusion. No pneumothorax. Heart/Mediastinum: The cardiac silhouette and mediastinal contours are unremarkable. Bones/joints: Unremarkable for age. XR/XR chest 1V portable [id number] IMPRESSION: No acute cardiopulmonary process.
[2023-01-01] MEDS: sodium chloride 0.9% 1,000 ML 999 ML IV (23:47)
[2023-01-01 23:57] VITALS: BP 113/68; PULSE 82; RESP 20; O2SAT 93
[2023-01-02 00:02] LABS: Basophils # 0.1 10^3/uL (0.0-0.1); Basophils % 0.6 %; Eosinophils % 0.1 %; Hematocrit 50.4 % (42.0-52.0); Hemoglobin 17.1 g/dL (11.7-16.6); Lymphocytes # 3.5 10^3/uL (0.8-4.8); Lymphocytes % 34.2 %; Mean Corpuscular HGB Conc 33.9 g/dL (30.0-36.0); Mean Corpuscular Hemoglobin 28.1 pg (28.0-34.0); Mean Corpuscular Volume 82.8 fl (80-94); Mean Platelet Volume 10.5 fL (7.4-10.4); Monocytes % 9.2 %; Neutrophils # 5.72 10^3/uL (1.8-7.7); Neutrophils % 55.5 %; Nucleated Red Blood Cells % 0 %; Platelet Count 206 10^3/cmm (130-400); Red Blood Count 6.09 10^6/uL (4.1-5.3); Red Cell Distribution Width 12.2 % (12.1-15.1); White Blood Count 10.3 10^3/uL (4.0-10.0)
[2023-01-02 00:52] LABS: Troponin(5th) Baseline 6 ng/L (0-15)
[2023-01-02 00:53] VITALS: BP 123/79; BP 131/77; BP 135/84; PULSE 80; PULSE 88; PULSE 91
[2023-01-02] MEDS: lidocaine 2% viscous 15 ML, aluminum-mag hydrox-simethicon 30 ML, sucralfate oral liq 1 GM PO (00:55)
[2023-01-02 00:57] LABS: Alanine Aminotransferase 22 U/L (0-41); Alkaline Phosphatase 91 U/L (40-130); Aspartate Amino Transferase 15 U/L (0-40); Blood Urea Nitrogen 13 mg/dL (6-20); Calcium 9.4 mg/dL (8.5-10.5); Carbon Dioxide 26 mmol/L (22-29); Chloride 98 mmol/L (98-107); Globulin 2.9 g/dL (1.3-4.6); Glomerular Filtration Rate 102.8 mL/min (90-130); Glucose 322 mg/dL (65-115); Lipase 97 U/L (13-60); NT Pro B Type Natriuretic Pept 36 pg/mL (0-125); Osmolality Calculated 295 mOsm/kg (285-295); Sodium 136 mmol/L (136-145); Total Bilirubin 0.3 mg/dL (0.15-1.2); Total Protein 6.9 g/dL (6.6-8.7)
[2023-01-02] MEDS: aspirin 81 mg Chew Tablet 324 MG PO (00:58)
[2023-01-02] MEDS: ketorolac 30 mg/mL INJ 15 MG IVP (01:06)
[2023-01-02 01:08] LABS: Ketone (Acetest) Serum Negative (Negative)
[2023-01-02 01:09] VITALS: PULSE 79; RESP 18; O2SAT 94
[2023-01-02 01:09] LABS: Anion Gap 16.2 (5-19); Potassium 4.2 mmol/L (3.5-5.1)
[2023-01-02 01:49] LABS: Influenza A by IFA negative (Negative); Influenza B by IFA negative (Negative); SARS Covid-2 Antigen negative (Negative)
[2023-01-02 02:28] VITALS: PULSE 77; O2SAT 92
[2023-01-02 02:43] LABS: Troponin 5 2HR 6.79 ng/L (0-15)
[2023-01-02 03:01] LABS: Glucose Point of Care 257 mg/dL (70-110)
--- NOTE | 2023-01-02 03:06 | ECG_ITS ---
[facility] Test Date: 2023-01-02 Pat Name: [facility] Department: Room: Gender: Male Criminal Research Specialist: : [id number] Requested By: Derrek Carrero Order Number: [id number] Esperanza MD: YAMIL VERGARA Measurements Intervals [place] Rate: 69 P: 69 [place]: 179 QRS: 87 QRSD: 97 T: 50 QT: 363 QTc: 390 Interpretive Statements SINUS RHYTHM WITH SINUS ARRHYTHMIA NONSPECIFIC T-WAVE ABNORMALITY Compared to ECG 12/07/2019 13:46:32 T-wave abnormality now present ST (T wave) deviation no longer present Early repolarization no longer present Electronically Signed On 01-02-2023 17:44:09 CDT by YAMIL VERGARA [email or web address]
[2023-01-02 03:09] LABS: Troponin 5 2HR Delta 0.79 ABS# (0-10)
--- NOTE | 2023-01-02 08:37 | DCPLANNER ---
Addendum entered by Montse Cabrera 02/22/23 08:25: Patient had a follow up appointment with heart care - patient did not attend appointment. Addendum entered by Montse Cabrera 01/02/23 11:58: Patient has a follow up appointment scheduled for Monday, February 20, 2023 at 2:[address] Lee at [facility]. Clinic will call patient with appointment information. Original Note: wireless retail manager had message to schedule a follow up appointment for patient with cardiology. wireless retail manager sent patients information to the front office staff at [facility]. Patients information will be printed and reviewed. Clinic will call patient with appointment information.
== END 2023-01-02 03:35 | disposition home or self-care (01) ==
PROVIDERS: Emergency Provider Emergency Medicine; PCP Nurse Practitioner Family
DX: R07.9 Chest pain, unspecified (principal); K85.90 Acute pancreatitis without necrosis or infection, unspecified; E86.0 Dehydration; E11.65 Type 2 diabetes mellitus with hyperglycemia; F17.210 Nicotine dependence, cigarettes, uncomplicated; Z20.822 Contact with and (suspected) exposure to COVID-19
CPT/HCPCS: 36416; 71045; 80053; 82009; 82962; 83690; 83880; 84484; 85025; 87426; 87804; 93005; 96361; 96374; 99285; J1885; J7030